=== PATIENT | female | born 1985 | race American Indian/Alaskan Native ===

== ENCOUNTER 2019-10-04 12:54 | Emergency (ER) | payer MEDICARE ==
[2019-10-04] MEDS ORDERED: IBUPROFEN 600 MG TAB PO ONE (13:01)
--- NOTE | 2019-10-04 13:03 | Event Note ---
ED Screening Note Date of service: 10/04/19 Time: 13:01 ED Screening Note: Pt complains of BARAJAS, body aches, cough, and fever x 3 days temp 102 This initial assessment/diagnostic orders/clinical plan/treatment(s) is/are subject to change based on patients health status, clinical progression and re- assessment by fellow clinical providers in the ED. Further treatment and workup at subsequent clinical providers discretion. Patient/guardian urged not to elope from the ED as their condition may be serious if not clinically assessed and managed. Initial orders include: ACC ibuprofen given
--- NOTE | 2019-10-04 15:15 | Emergency Department Report ---
- General Chief Complaint: Upper Respiratory Infection Stated Complaint: FLU LIKE SYMPTOMS Time Seen by Provider: 10/04/19 13:00 Source: patient, EMS Mode of arrival: Ambulatory Limitations: No Limitations - History of Present Illness Initial Comments: Patient is a 34-year-old female presents emergency room with complaints of flulike symptoms that began 3 days ago. She has associated headache, fever, body aches, dry cough, ear pain. She denies any vomiting, diarrhea, rhinorrhea, shortness of breath, sore throat, chest pain, or productive cough. she denies any sick contacts. no past medical history or allergies medications. Her last menstrual cycle was 09/19/19. - Related Data Allergies Allergy/AdvReac Type Severity Reaction Status Date / Time No Known Allergies Allergy Unverified 10/04/19 12:55 ED Review of Systems ROS: Stated complaint: FLU LIKE SYMPTOMS Other details as noted in HPI Comment: All other systems reviewed and negative ED Past Medical Hx - Past Medical History Previous Medical History?: No - Surgical History Past Surgical History?: No - Social History Smoking Status: Never Smoker Substance Use Type: None ED Physical Exam - General Limitations: No Limitations General appearance: alert, in no apparent distress - Head Head exam: Present: atraumatic, normocephalic - Eye Eye exam: Present: normal appearance - ENT ENT exam: Present: normal orophraynx, mucous membranes moist, TM's normal bilaterally, normal external ear exam - Respiratory Respiratory exam: Present: normal lung sounds bilaterally. Absent: respiratory distress, wheezes, rales, rhonchi, stridor, chest wall tenderness, accessory muscle use, decreased breath sounds, prolonged expiratory - Cardiovascular Cardiovascular Exam: Present: regular rate, normal rhythm, normal heart sounds. Absent: systolic murmur, diastolic murmur, rubs, gallop - Neurological Exam Neurological exam: Present: alert, oriented X3 - Psychiatric Psychiatric exam: Present: normal affect, normal mood - Skin Skin exam: Present: warm, dry, intact ED Course Vital Signs 10/04/19 10/04/19 12:58 15:40 Temperature 102.1 F H 99.7 F H Pulse Rate 106 H 106 H Respiratory 18 20 Rate Blood Pressure 123/85 Blood Pressure 105/66 [Right] O2 Sat by Pulse 98 97 Oximetry ED Medical Decision Making - Lab Data Vital Signs 10/04/19 10/04/19 12:58 15:40 Temperature 102.1 F H 99.7 F H Pulse Rate 106 H 106 H Respiratory 18 20 Rate Blood Pressure 123/85 Blood Pressure 105/66 [Right] O2 Sat by Pulse 98 97 Oximetry - Medical Decision Making Patient is a 34-year-old female presents emergency room with complaints of flulike symptoms that began 3 days ago. She has associated headache, fever, body aches, dry cough, ear pain. She denies any vomiting, diarrhea, rhinorrhea, shortness of breath, sore throat, chest pain, or productive cough. she denies any sick contacts. no past medical history or allergies medications. Her last menstrual cycle was 09/19/19. initial vitals with elevated temperature and HR which improved upon ibuprofen administration. Patient has clinical signs and symptoms of influenza or another viral-like illness. pt is out of the 48 hour range for Tamiflu, therefore Tamiflu is not indicated. discussed the importance of supportive care and oral rehydration with patient. advised patient to please increase her fluid intake over the next several days. May alternate Tylenol and ibuprofen every 4 hours as needed for a fever or body aches. may take [id number] cough and cold medication or TheraFlu. Follow-up with a primary care doctor in the next 2-3 days. Return to the emergency room for any new or worsening symptoms. - Differential Diagnosis URI, PNA, otitis, pharyngitis, bronchitis, influenza, viral syndrome Critical care attestation.: If time is entered above; I have spent that time in minutes in the direct care of this critically ill patient, excluding procedure time. ED Disposition Clinical Impression: Viral illness Disposition: DC-01 TO HOME OR SELFCARE Is pt being admited?: No Does the pt Need Aspirin: No Condition: Stable Instructions: Influenza (ED), Viral Syndrome (ED) Additional Instructions: please increase your fluid intake over the next several days. get plenty of rest. May alternate Tylenol and ibuprofen every 4 hours as needed for a fever or body aches. may take [id number] cough and cold medication or TheraFlu. Follow-up with a primary care doctor in the next 2-3 days. [facility] for any new or worsening symptoms. Referrals: MITZI AARON MD [Staff Physician] - 2-3 Days [facility] [Outside] - 2-3 Days [facility] [Outside] - 2-3 Days Forms: Work/School Release Form(ED) Time of Disposition: 15:15 Print Language: GERMAN
[2019-10-04 15:41] VITALS: BP 105/66
== END 2019-10-04 15:40 | disposition home or self-care (01) ==
LOC: ED 12:54
DX: B34.9 Viral infection, unspecified (principal)